=== PATIENT | female | born 1945 | race Caucasian/White ===

== ENCOUNTER 2018-05-19 11:13 | Inpatient (IN) | payer MEDICARE, OTHER ==
[~2018-05-19] VITALS: Ht 162.6 cm; Wt 63.0 kg
[2018-05-19] MEDS ORDERED: LEVO75TA5 PO (11:57)
[2018-05-19] MEDS ORDERED: SODIUM CHLORIDE 0.9% 1,000ML IVBOLUS ONE (12:00)
[2018-05-19] MEDS ORDERED: ONDANSETRON 2MG/ML, 2ML IVPush ONE (12:00)
[2018-05-19] MEDS ORDERED: SODIUM CHLORIDE FLUSH 10ML SYR IVF ONE (12:00)
[2018-05-19] MEDS ORDERED: FAMOTIDINE 20 MG/2 ML IVP ONE (12:00)
[2018-05-19] MEDS ORDERED: FAMOTIDINE 20 MG/2 ML ONE (12:09)
[2018-05-19] MEDS ORDERED: ONDANSETRON 2MG/ML, 2ML ONE (12:09)
[2018-05-19 12:17] LABS: BASOPHILS # (AUTO) 0.03 x10^3/uL (0-0.1); BASOPHILS % (AUTO) 0 % (0-1); EOSINOPHILS % (AUTO) 1 % (1-7); LYMPHOCYTES # (AUTO) 1.76 x10^3/uL (1-3.4); LYMPHOCYTES % (AUTO) 24 % (22-44); MD NO; MEAN CORPUSCULAR HEMOGLOBIN 30.8 pg (27.0-34.8); MEAN CORPUSCULAR HGB CONC 34.1 g/dL (32.4-35.8); MEAN CORPUSCULAR VOLUME 90.5 fL (80-100); MEAN PLATELET VOLUME 9.4 fL (7.4-10.4); MONOCYTES # (AUTO) 0.71 x10^3/uL (0.2-0.8); MONOCYTES % (AUTO) 9 % (2-9); NEUTROPHILS # (AUTO) 4.88 x10^3/uL (1.8-6.8); NEUTROPHILS % (AUTO) 65 % (42-75); PLATELET COUNT 208 x10^3/uL (130-400); RED BLOOD COUNT 5.56 x10^6/uL (3.82-5.3)
[2018-05-19 12:23] LABS: ALBUMIN 3.6 g/dL (3.4-5.0); ANION GAP 20 mmol/L (5-15); CALCIUM 9.8 mg/dL (8.5-10.1); CHLORIDE 79 mmol/L (98-107)
[2018-05-19 12:26] LABS: ALANINE AMINOTRANSFERASE 34 U/L (12-78); ALKALINE PHOSPHATASE 104 U/L (45-117); BILIRUBIN,TOTAL 1.2 mg/dL (0.2-1.0); TOTAL PROTEIN 7.3 g/dL (6.4-8.2)
[2018-05-19] MEDS ORDERED: PLEASE ENTER HEIGHT AND WEIGHT MC SCH (12:30)
[2018-05-19] MEDS ORDERED: DEXTROSE 50%, 50ML SYRINGE ONE (12:36)
[2018-05-19] MEDS ORDERED: DEXTROSE 50%, 50ML SYRINGE IVPush ONE (13:00)
[2018-05-19] MEDS ORDERED: OMNIPAQUE 350 MG/ML, 100ML BOTTLE ONE (13:14)
[2018-05-19] MEDS ORDERED: DOCUSATE 100 MG CAPSULE PO PRN (14:00)
[2018-05-19] MEDS ORDERED: ACETAMINOPHEN 325 MG TABLET PO PRN (14:00)
[2018-05-19] MEDS ORDERED: ONDANSETRON 2MG/ML, 2ML IVPush PRN (14:00)
[2018-05-19] MEDS ORDERED: HYDROcodone/APAP 5/325 TABLET PO PRN (14:00)
[2018-05-19] MEDS ORDERED: MORPHINE SULFATE 4 MG/ML, 1ML IVPush PRN (14:00)
[2018-05-19] MEDS ORDERED: ENOXAPARIN 40 MG/0.4 ML SQ SCH (14:00)
[2018-05-19] MEDS ORDERED: POLYETHYLENE GLYCOL 17 GM PACKET PO PRN (14:00)
[2018-05-19] MEDS: NICOTINE 7 MG/24 HR PATCH.TD24 TD SCH (14:00)
[2018-05-19] MEDS ORDERED: ACETAMINOPHEN 325 MG TABLET ONE (14:44)
[2018-05-19 14:58] LABS: MICROSCOPIC NOT IND
[2018-05-19] MEDS ORDERED: D5%-0.9% NACL+KCL 20MEQ 1,000 ML IV SCH (15:00)
[2018-05-19 15:02] LABS: CULTURE INDICATED? NO
[2018-05-19] MEDS ORDERED: DEXAMETHASONE 4 MG/ML, 5ML ONE (15:09)
[2018-05-19] MEDS ORDERED: CEFTRIAXONE PMX 1GM/50ML 50 ML ONE (15:09)
[2018-05-19] MEDS ORDERED: DEXAMETHASONE 4 MG/ML, 1ML IV ONE (15:30)
[2018-05-19] MEDS ORDERED: CEFTRIAXONE 1,000 MG in SODIUM CHLORIDE 0.9% 50 ML IVPB ONE (15:30)
[2018-05-19] MEDS ORDERED: ICN DEXAMETHASONE 1 MG/ML IV IV ONE (15:30)
[2018-05-19 15:43] LABS: ANION GAP 12 mmol/L (5-15); CALCIUM 8.2 mg/dL (8.5-10.1); CHLORIDE 88 mmol/L (98-107)
[2018-05-19] MEDS ORDERED: NOREPINEPHRINE 4 MG in SODIUM CHLORIDE 0.9% 246 ML IV PRN ×2 (16:00→16:57)
[2018-05-19] MEDS: METRONIDAZOLE PMX 500MG/100ML 100 ML IVPB SCH (18:16)
[2018-05-19] MEDS: PANTOPRAZOLE 40 MG IV IVPush SCH (18:17)
[2018-05-19] MEDS: SODIUM CHLORIDE 0.9% 1,000 ML IV SCH (18:17)
[2018-05-19] MEDS ORDERED: FAMOTIDINE 20 MG TABLET PO SCH (21:00)
[2018-05-19 23:40] LABS: ANION GAP 12 mmol/L (5-15); CHLORIDE 97 mmol/L (98-107); CREATININE 0.95 mg/dL (0.55-1.02)
[2018-05-20] MEDS: METRONIDAZOLE PMX 500MG/100ML 100 ML IVPB SCH ×3 (02:44→17:30)
[2018-05-20 04:00] VITALS: BP 106/54
[2018-05-20] MEDS ORDERED: ZIPRASIDONE 20 MG INJ IM ONE ×2 (04:00→04:01)
[2018-05-20 04:45] LABS: BASOPHILS # (AUTO) 0.02 x10^3/uL (0-0.1); BASOPHILS % (AUTO) 0 % (0-1); EOSINOPHILS % (AUTO) 0 % (1-7); LYMPHOCYTES # (AUTO) 0.44 x10^3/uL (1-3.4); LYMPHOCYTES % (AUTO) 6 % (22-44); MD NO; MEAN CORPUSCULAR HEMOGLOBIN 30.9 pg (27.0-34.8); MEAN CORPUSCULAR HGB CONC 34.2 g/dL (32.4-35.8); MEAN CORPUSCULAR VOLUME 90.5 fL (80-100); MEAN PLATELET VOLUME 8.9 fL (7.4-10.4); MONOCYTES # (AUTO) 0.03 x10^3/uL (0.2-0.8); MONOCYTES % (AUTO) 0 % (2-9); NEUTROPHILS # (AUTO) 7.24 x10^3/uL (1.8-6.8); NEUTROPHILS % (AUTO) 94 % (42-75); PLATELET COUNT 191 x10^3/uL (130-400); RED CELL DISTRIBUTION WIDTH 12.1 % (9.6-15.2)
[2018-05-20 04:50] LABS: CHLORIDE 99 mmol/L (98-107)
[2018-05-20 04:56] LABS: ANION GAP 8 mmol/L (5-15); CALCIUM 8.2 mg/dL (8.5-10.1)
[2018-05-20] MEDS: PANTOPRAZOLE 40 MG IV IVPush SCH ×2 (05:35→17:30)
[2018-05-20] MEDS ORDERED: MAGNESIUM SULFATE 4 GM in SODIUM CHLORIDE 0.9% 100 ML IV ONE (09:00)
[2018-05-20] MEDS: SODIUM CHLORIDE 0.9% 1,000 ML IV SCH (09:15)
[2018-05-20] MEDS: NICOTINE 7 MG/24 HR PATCH.TD24 TD SCH (09:15)
[2018-05-20] MEDS: LEVOTHYROXINE 75 MCG TABLET PO SCH ×2 (09:16→09:22)
[2018-05-20 11:44] LABS: ALBUMIN 3.2 g/dL (3.4-5.0); CHLORIDE 102 mmol/L (98-107)
[2018-05-20 11:47] LABS: ALANINE AMINOTRANSFERASE 31 U/L (12-78); ALKALINE PHOSPHATASE 79 U/L (45-117); ANION GAP 9 mmol/L (5-15); BILIRUBIN,TOTAL 0.5 mg/dL (0.2-1.0); CALCIUM 8.5 mg/dL (8.5-10.1); CREATININE 0.79 mg/dL (0.55-1.02); TOTAL PROTEIN 6.5 g/dL (6.4-8.2)
[2018-05-20 11:59] LABS: FREE T4 (FREE THYROXINE) 1.93 ng/dL (0.76-1.46); THYROID STIMULATING HORMONE 0.23 mIU/L (0.358-3.740)
[2018-05-20] MEDS: CEFTRIAXONE 2 GM in SODIUM CHLORIDE 0.9% 50 ML IVPB SCH (15:12)
[2018-05-20] MEDS: FOLIC ACID 1 MG, THIAMINE 200 MG, MVI ADULT 10 ML in D5%-0.9% NACL 1,000 ML IV SCH (16:18)
[2018-05-21] MEDS: METRONIDAZOLE PMX 500MG/100ML 100 ML IVPB SCH ×3 (01:46→22:55)
[2018-05-21 04:27] VITALS: BP 137/74
[2018-05-21] MEDS: LEVOTHYROXINE 25 MCG TABLET PO SCH (04:27)
[2018-05-21] MEDS: PANTOPRAZOLE 40 MG IV IVPush SCH ×2 (04:27→18:47)
[2018-05-21 05:04] LABS: ALANINE AMINOTRANSFERASE 36 U/L (12-78); ALBUMIN 3.1 g/dL (3.4-5.0); ANION GAP 9 mmol/L (5-15); CALCIUM 8.1 mg/dL (8.5-10.1); CHLORIDE 103 mmol/L (98-107); CREATININE 0.75 mg/dL (0.55-1.02)
[2018-05-21 05:07] LABS: ALKALINE PHOSPHATASE 75 U/L (45-117); BILIRUBIN,TOTAL 0.4 mg/dL (0.2-1.0); TOTAL PROTEIN 6.4 g/dL (6.4-8.2)
[2018-05-21 05:12] LABS: BASOPHILS % (AUTO) 0 % (0-1); EOSINOPHILS % (AUTO) 0 % (1-7); LYMPHOCYTES # (AUTO) 0.73 x10^3/uL (1-3.4); LYMPHOCYTES % (AUTO) 5 % (22-44); MD NO; MEAN CORPUSCULAR HEMOGLOBIN 31.3 pg (27.0-34.8); MEAN CORPUSCULAR HGB CONC 33.8 g/dL (32.4-35.8); MEAN CORPUSCULAR VOLUME 92.6 fL (80-100); MEAN PLATELET VOLUME 9.1 fL (7.4-10.4); MONOCYTES # (AUTO) 0.82 x10^3/uL (0.2-0.8); MONOCYTES % (AUTO) 5 % (2-9); NEUTROPHILS # (AUTO) 14.62 x10^3/uL (1.8-6.8); NEUTROPHILS % (AUTO) 90 % (42-75); PLATELET COUNT 208 x10^3/uL (130-400); RED BLOOD COUNT 4.25 x10^6/uL (3.82-5.3); RED CELL DISTRIBUTION WIDTH 12.4 % (9.6-15.2)
[2018-05-21] MEDS ORDERED: SODIUM CHLORIDE 0.9% 1,000ML IVBOLUS ONE (13:30)
[2018-05-21] MEDS: FOLIC ACID 1 MG, THIAMINE 200 MG, MVI ADULT 10 ML in D5%-0.9% NACL 1,000 ML IV SCH (16:35)
[2018-05-21] MEDS: CEFTRIAXONE 2 GM in SODIUM CHLORIDE 0.9% 50 ML IVPB SCH (16:35)
[2018-05-21] MEDS: NICOTINE 7 MG/24 HR PATCH.TD24 TD SCH (16:36)
[2018-05-21 17:58] VITALS: BP 117/71
[2018-05-21 20:00] VITALS: BP 104/62
[2018-05-22 01:06] VITALS: BP 100/58
[2018-05-22] MEDS: LEVOTHYROXINE 25 MCG TABLET PO SCH (05:37)
[2018-05-22] MEDS: PANTOPRAZOLE 40 MG IV IVPush SCH ×2 (05:37→18:02)
[2018-05-22] MEDS: METRONIDAZOLE PMX 500MG/100ML 100 ML IVPB SCH ×3 (07:53→23:56)
[2018-05-22 07:57] VITALS: BP 118/74
[2018-05-22 08:23] LABS: BASOPHILS # (AUTO) 0.02 x10^3/uL (0-0.1); BASOPHILS % (AUTO) 0 % (0-1); EOSINOPHILS # (AUTO) 0.01 x10^3/uL (0-0.4); EOSINOPHILS % (AUTO) 0 % (1-7); LYMPHOCYTES # (AUTO) 1.56 x10^3/uL (1-3.4); LYMPHOCYTES % (AUTO) 15 % (22-44); MD NO; MEAN CORPUSCULAR HEMOGLOBIN 29.9 pg (27.0-34.8); MEAN CORPUSCULAR HGB CONC 33.3 g/dL (32.4-35.8); MEAN CORPUSCULAR VOLUME 89.8 fL (80-100); MEAN PLATELET VOLUME 8.6 fL (7.4-10.4); MONOCYTES # (AUTO) 0.72 x10^3/uL (0.2-0.8); MONOCYTES % (AUTO) 7 % (2-9); NEUTROPHILS # (AUTO) 8.21 x10^3/uL (1.8-6.8); NEUTROPHILS % (AUTO) 78 % (42-75); PLATELET COUNT 209 x10^3/uL (130-400); RED BLOOD COUNT 4.35 x10^6/uL (3.82-5.3); RED CELL DISTRIBUTION WIDTH 12.6 % (9.6-15.2)
[2018-05-22 08:32] LABS: ALANINE AMINOTRANSFERASE 44 U/L (12-78); ALBUMIN 3.1 g/dL (3.4-5.0); ANION GAP 8 mmol/L (5-15); CHLORIDE 103 mmol/L (98-107); CREATININE 0.84 mg/dL (0.55-1.02)
[2018-05-22 08:35] LABS: ALKALINE PHOSPHATASE 73 U/L (45-117); BILIRUBIN,TOTAL 0.7 mg/dL (0.2-1.0); TOTAL PROTEIN 6.1 g/dL (6.4-8.2)
[2018-05-22] MEDS: FOLIC ACID 1 MG, THIAMINE 200 MG, MVI ADULT 10 ML in D5%-0.9% NACL 1,000 ML IV SCH (12:58)
[2018-05-22 13:02] VITALS: BP 124/66
[2018-05-22] MEDS: NICOTINE 7 MG/24 HR PATCH.TD24 TD SCH (15:00)
[2018-05-22] MEDS: CEFTRIAXONE 2 GM in SODIUM CHLORIDE 0.9% 50 ML IVPB SCH (15:08)
[2018-05-22 19:35] VITALS: BP 122/69
[2018-05-23 01:19] VITALS: BP 109/70
[2018-05-23 07:25] VITALS: BP 94/56
[2018-05-23] MEDS: METRONIDAZOLE PMX 500MG/100ML 100 ML IVPB SCH ×2 (08:33→21:18)
[2018-05-23] MEDS: PANTOPRAZOLE 40 MG IV IVPush SCH (08:33)
[2018-05-23 10:35] LABS: ALANINE AMINOTRANSFERASE 34 U/L (12-78); ALBUMIN 2.5 g/dL (3.4-5.0); ANION GAP 8 mmol/L (5-15); CALCIUM 7.2 mg/dL (8.5-10.1); CHLORIDE 105 mmol/L (98-107); CREATININE 0.71 mg/dL (0.55-1.02)
[2018-05-23 10:37] LABS: ALKALINE PHOSPHATASE 57 U/L (45-117); BILIRUBIN,TOTAL 0.7 mg/dL (0.2-1.0); TOTAL PROTEIN 5.2 g/dL (6.4-8.2)
[2018-05-23 10:40] LABS: BASOPHILS # (AUTO) 0.05 x10^3/uL (0-0.1); BASOPHILS % (AUTO) 1 % (0-1); EOSINOPHILS # (AUTO) 0.09 x10^3/uL (0-0.4); EOSINOPHILS % (AUTO) 1 % (1-7); LYMPHOCYTES # (AUTO) 1.83 x10^3/uL (1-3.4); LYMPHOCYTES % (AUTO) 26 % (22-44); MD NO; MEAN CORPUSCULAR HEMOGLOBIN 31.2 pg (27.0-34.8); MEAN CORPUSCULAR HGB CONC 33.9 g/dL (32.4-35.8); MEAN CORPUSCULAR VOLUME 92.2 fL (80-100); MEAN PLATELET VOLUME 8.3 fL (7.4-10.4); MONOCYTES # (AUTO) 0.61 x10^3/uL (0.2-0.8); MONOCYTES % (AUTO) 9 % (2-9); NEUTROPHILS # (AUTO) 4.43 x10^3/uL (1.8-6.8); NEUTROPHILS % (AUTO) 63 % (42-75); PLATELET COUNT 209 x10^3/uL (130-400); RED BLOOD COUNT 3.99 x10^6/uL (3.82-5.3); RED CELL DISTRIBUTION WIDTH 12.8 % (9.6-15.2)
[2018-05-23] MEDS ORDERED: MAGNESIUM SULFATE 4 GM in SODIUM CHLORIDE 0.9% 100 ML IV ONE (12:00)
[2018-05-23] MEDS ORDERED: MAGNESIUM SULFATE PMX 4GM/100M 100 ML IVPB ONE (12:00)
[2018-05-23 12:55] VITALS: BP 124/66
[2018-05-23] MEDS: NICOTINE 7 MG/24 HR PATCH.TD24 TD SCH (15:00)
[2018-05-23] MEDS ORDERED: PROPOFOL 10 MG/ML, 20ML ONE (15:13)
[2018-05-23] MEDS ORDERED: PROMETHAZINE 12.5 MG SUPP PR PRN (15:30)
[2018-05-23] MEDS ORDERED: PROMETHAZINE 25 MG/ML, 1ML IV PRN (15:30)
[2018-05-23] MEDS ORDERED: ONDANSETRON 2MG/ML, 2ML IV PRN (15:30)
[2018-05-23] MEDS ORDERED: ONDANSETRON ODT 8 MG PO PRN (15:30)
[2018-05-23] MEDS ORDERED: MIDAZOLAM 1 MG/ML, 2ML IV PRN (15:30)
[2018-05-23] MEDS ORDERED: HYDROmorphone 1 MG/ML, 1ML IV PRN (15:30)
[2018-05-23] MEDS ORDERED: OXYcodone 5 MG/5 ML ORAL.SOL UDC PO PRN (15:30)
[2018-05-23] MEDS ORDERED: LABETALOL 5MG/ML, 20ML IV PRN (15:30)
[2018-05-23] MEDS ORDERED: MEPERIDINE/PF 25MG/0.5ML IVPush PRN (15:30)
[2018-05-23] MEDS ORDERED: ALBUTEROL SULFATE 2.5 MG/3 ML NPPB PRN (15:30)
[2018-05-23] MEDS ORDERED: FENTANYL PF 100 MCG/2ML IV PRN (15:30)
[2018-05-23] MEDS ORDERED: hydrALAzine 20 MG/ML, 1ML IV PRN (15:30)
[2018-05-23] MEDS ORDERED: POTASSIUM CHLORIDE 20 MEQ TAB.ER.PRT PO ONE (16:00)
[2018-05-23 19:51] VITALS: BP 100/52
[2018-05-23] MEDS: PANTOPROZOLE 40MG TABLET PO SCH (21:18)
[2018-05-23] MEDS: CETIRIZINE 10 MG TABLET PO SCH (21:18)
[2018-05-23 22:05] VITALS: BP 121/66
[2018-05-23] MEDS: CEFTRIAXONE 2 GM in SODIUM CHLORIDE 0.9% 50 ML IVPB SCH (22:42)
[2018-05-24] MEDS: METRONIDAZOLE PMX 500MG/100ML 100 ML IVPB SCH (05:09)
[2018-05-24 05:37] LABS: ANION GAP 7 mmol/L (5-15); CALCIUM 7.4 mg/dL (8.5-10.1); CHLORIDE 102 mmol/L (98-107)
[2018-05-24 05:38] LABS: CREATININE 0.68 mg/dL (0.55-1.02)
[2018-05-24] MEDS ORDERED: LEVOTHYROXINE 50 MCG TABLET PO SCH (06:00)
[2018-05-24] MEDS ORDERED: POTASSIUM CHLORIDE 20 MEQ TAB.ER.PRT PO ONE (07:30)
[2018-05-24 07:34] VITALS: BP 101/59
[2018-05-24] MEDS: CETIRIZINE 10 MG TABLET PO SCH (09:22)
[2018-05-24] MEDS: PANTOPROZOLE 40MG TABLET PO SCH (09:22)
[2018-05-24] MEDS ORDERED: LEVO50TA PO (10:56)
[2018-05-24] MEDS ORDERED: PANT40TA5 PO (10:56)
== END 2018-05-24 12:35 | disposition home or self-care (01) | DRG 871 ==
LOC: SUATTDRO 13:11 → ED 13:35 → EDIP 13:36 → CCU 17:11 → 3NE 05-21 16:49
PROVIDERS: ADMIT Family Medicine; ATTEND Family Medicine
PROC: 05HM33Z Insertion of Infusion Device into Right Internal Jugular Vein, Percutaneous Approach (ICD-10-PCS; principal; 2018-05-19)
PROC: B543ZZA Ultrasonography of Right Jugular Veins, Guidance (ICD-10-PCS; 2018-05-19)
PROC: 0DB38ZX Excision of Lower Esophagus, Via Natural or Artificial Opening Endoscopic, Diagnostic (ICD-10-PCS; 2018-05-23)
DX: A41.9 Sepsis, unspecified organism (principal); G93.41 Metabolic encephalopathy; R65.21 Severe sepsis with septic shock; E87.1 Hypo-osmolality and hyponatremia; K22.10 Ulcer of esophagus without bleeding; D75.1 Secondary polycythemia; E86.0 Dehydration; E78.5 Hyperlipidemia, unspecified; K22.8 Other specified diseases of esophagus; F17.200 Nicotine dependence, unspecified, uncomplicated; E16.2 Hypoglycemia, unspecified; E89.0 Postprocedural hypothyroidism; I95.1 Orthostatic hypotension; Z82.3 Family history of stroke; J30.2 Other seasonal allergic rhinitis; K52.9 Noninfective gastroenteritis and colitis, unspecified; Z81.8 Family history of other mental and behavioral disorders; Z88.0 Allergy status to penicillin; Z79.899 Other long term (current) drug therapy
CPT/HCPCS: 36415; 36556; 70450; 71045; 74177; 80048; 80053; 81003; 82140; 82306; 82607; 83605; 83690; 83735; 84100; 84145; 84439; 84443; 85014; 85018; 85025; 87040; 87081; 88305; 89055; 96374; 96375; 99292; J0696; J2405; J2704; J3411; J3475; J3486; J7042; Q9967; C9113; J3480; J7030; J7050; S0028

== ENCOUNTER 2018-06-09 17:12 | Inpatient (IN) | payer MEDICARE, OTHER ==
[~2018-06-09] VITALS: Ht 157.5 cm; Wt 58.8 kg
[~2018-06-09 17:12] MED LIST: LEVO50TA PO; LEVO75TA5 PO; PANT40TA5 PO
[2018-06-09] MEDS ORDERED: DEXTROSE 50%, 50ML SYRINGE ONE (17:42)
[2018-06-09] MEDS ORDERED: SODIUM CHLORIDE FLUSH 10ML SYR IVF ONE (18:00)
[2018-06-09] MEDS ORDERED: SODIUM CHLORIDE 0.9% 1,000ML IVBOLUS ONE ×2 (18:00→21:00)
[2018-06-09 18:23] LABS: BASOPHILS # (AUTO) 0.05 x10^3/uL (0-0.1); BASOPHILS % (AUTO) 1 % (0-1); EOSINOPHILS # (AUTO) 0.16 x10^3/uL (0-0.4); EOSINOPHILS % (AUTO) 4 % (1-7); LYMPHOCYTES # (AUTO) 1.23 x10^3/uL (1-3.4); LYMPHOCYTES % (AUTO) 28 % (22-44); MD NO; MEAN CORPUSCULAR HEMOGLOBIN 30.9 pg (27.0-34.8); MEAN CORPUSCULAR HGB CONC 33.9 g/dL (32.4-35.8); MEAN PLATELET VOLUME 8.6 fL (7.4-10.4); MONOCYTES # (AUTO) 0.41 x10^3/uL (0.2-0.8); MONOCYTES % (AUTO) 9 % (2-9); NEUTROPHILS # (AUTO) 2.51 x10^3/uL (1.8-6.8); NEUTROPHILS % (AUTO) 58 % (42-75); PLATELET COUNT 241 x10^3/uL (130-400); RED BLOOD COUNT 4.41 x10^6/uL (3.82-5.3); RED CELL DISTRIBUTION WIDTH 13.3 % (9.6-15.2)
[2018-06-09 18:31] LABS: INTERNATIONAL NORMALIZED RATIO 1.16 (0.93-1.1)
[2018-06-09 18:34] LABS: ANION GAP 16 mmol/L (5-15); CALCIUM 9.2 mg/dL (8.5-10.1); CHLORIDE 89 mmol/L (98-107)
[2018-06-09 18:38] LABS: ALANINE AMINOTRANSFERASE 21 U/L (12-78); ALKALINE PHOSPHATASE 66 U/L (45-117); BILIRUBIN,TOTAL 0.9 mg/dL (0.2-1.0); CREATININE 1.08 mg/dL (0.55-1.02); TOTAL PROTEIN 6.2 g/dL (6.4-8.2)
[2018-06-09 19:20] LABS: ACETONE, SERUM Moderate(40mg/dL) mg/dL (Negative)
[2018-06-09 19:47] LABS: FREE T4 (FREE THYROXINE) 1.21 ng/dL (0.76-1.46); THYROID STIMULATING HORMONE 5.8 mIU/L (0.358-3.740)
[2018-06-09 20:32] LABS: CULTURE INDICATED? YES; MICROSCOPIC AUTO
[2018-06-09] MEDS ORDERED: POLYETHYLENE GLYCOL 17 GM PACKET PO PRN (21:00)
[2018-06-09] MEDS: HEPARIN 5,000 UNITS/ML, 1ML SQ SCH ×2 (21:00→22:07)
[2018-06-09] MEDS: PANTOPROZOLE 40MG TABLET PO SCH ×2 (21:00→22:08)
[2018-06-09] MEDS ORDERED: ACETAMINOPHEN 325 MG TABLET PO PRN (21:00)
[2018-06-09 21:25] VITALS: BP 88/43
[2018-06-09 22:38] VITALS: BP 76/43
[2018-06-09 23:00] VITALS: BP 78/54
[2018-06-09 23:41] VITALS: BP 85/41
[2018-06-10] VITALS (7 sets, daily range): BP systolic 82–133; BP diastolic 42–75
[2018-06-10] MEDS: SODIUM CHLORIDE 0.9% 1,000 ML IV SCH ×2 (01:29→10:13)
[2018-06-10] MEDS: HEPARIN 5,000 UNITS/ML, 1ML SQ SCH ×3 (05:16→21:23)
[2018-06-10] MEDS: LEVOTHYROXINE 50 MCG TABLET PO SCH (05:16)
[2018-06-10] MEDS ORDERED: SODIUM CHLORIDE 0.9%, 500ML IVBOLUS ONE (05:30)
[2018-06-10 05:33] LABS: BASOPHILS # (AUTO) 0.05 x10^3/uL (0-0.1); BASOPHILS % (AUTO) 2 % (0-1); EOSINOPHILS # (AUTO) 0.07 x10^3/uL (0-0.4); EOSINOPHILS % (AUTO) 2 % (1-7); LYMPHOCYTES # (AUTO) 1.11 x10^3/uL (1-3.4); LYMPHOCYTES % (AUTO) 33 % (22-44); MD NO; MEAN CORPUSCULAR HEMOGLOBIN 30.9 pg (27.0-34.8); MEAN CORPUSCULAR VOLUME 90.8 fL (80-100); MEAN PLATELET VOLUME 8.9 fL (7.4-10.4); MONOCYTES # (AUTO) 0.44 x10^3/uL (0.2-0.8); MONOCYTES % (AUTO) 13 % (2-9); NEUTROPHILS # (AUTO) 1.71 x10^3/uL (1.8-6.8); NEUTROPHILS % (AUTO) 51 % (42-75); PLATELET COUNT 218 x10^3/uL (130-400); RED BLOOD COUNT 4.01 x10^6/uL (3.82-5.3); RED CELL DISTRIBUTION WIDTH 13.5 % (9.6-15.2)
[2018-06-10 05:53] LABS: ANION GAP 7 mmol/L (5-15); CALCIUM 8.5 mg/dL (8.5-10.1); CHLORIDE 99 mmol/L (98-107)
[2018-06-10 05:54] LABS: CREATININE 0.77 mg/dL (0.55-1.02)
[2018-06-10 08:08] LABS: CLOSTRIDIUM DIFFICILE ANTIGEN NEGATIVE; CLOSTRIDIUM DIFFICILE TOXIN NEGATIVE (Negative)
[2018-06-10] MEDS: PANTOPROZOLE 40MG TABLET PO SCH ×2 (09:00→21:23)
[2018-06-10] MEDS ORDERED: COSYNTROPIN 0.25 MG IM ONE (11:00)
[2018-06-10] MEDS ORDERED: D5%-0.9% NACL 1,000 ML IV SCH (11:00)
[2018-06-10] MEDS ORDERED: DEXAMETHASONE 4 MG/ML, 1ML IVPush SCH (11:30)
[2018-06-10] MEDS ORDERED: MAGNESIUM SULFATE 4 GM in SODIUM CHLORIDE 0.9% 100 ML IV ONE (12:30)
[2018-06-10 15:28] LABS: ANION GAP 10 mmol/L (5-15); CALCIUM 8.8 mg/dL (8.5-10.1); CHLORIDE 99 mmol/L (98-107)
[2018-06-10 15:31] LABS: CREATININE 0.74 mg/dL (0.55-1.02)
[2018-06-10] MEDS: DEXAMETHASONE 4 MG/ML, 1ML IVPush SCH (23:26)
[2018-06-11 02:00] VITALS: BP 120/77
[2018-06-11] MEDS: HEPARIN 5,000 UNITS/ML, 1ML SQ SCH ×5 (05:00→23:23)
[2018-06-11] MEDS: LEVOTHYROXINE 50 MCG TABLET PO SCH ×2 (05:59→06:00)
[2018-06-11 06:17] LABS: BASOPHILS # (AUTO) 0.01 x10^3/uL (0-0.1); BASOPHILS % (AUTO) 0 % (0-1); EOSINOPHILS % (AUTO) 0 % (1-7); LYMPHOCYTES # (AUTO) 0.55 x10^3/uL (1-3.4); LYMPHOCYTES % (AUTO) 14 % (22-44); MD NO; MEAN CORPUSCULAR HEMOGLOBIN 30.1 pg (27.0-34.8); MEAN CORPUSCULAR HGB CONC 33.7 g/dL (32.4-35.8); MEAN CORPUSCULAR VOLUME 89.5 fL (80-100); MEAN PLATELET VOLUME 9.3 fL (7.4-10.4); MONOCYTES # (AUTO) 0.11 x10^3/uL (0.2-0.8); MONOCYTES % (AUTO) 3 % (2-9); NEUTROPHILS # (AUTO) 3.23 x10^3/uL (1.8-6.8); NEUTROPHILS % (AUTO) 83 % (42-75); PLATELET COUNT 241 x10^3/uL (130-400); RED BLOOD COUNT 4.72 x10^6/uL (3.82-5.3); RED CELL DISTRIBUTION WIDTH 13.6 % (9.6-15.2)
[2018-06-11 06:31] LABS: ANION GAP 11 mmol/L (5-15); CHLORIDE 101 mmol/L (98-107)
[2018-06-11 06:35] LABS: ALANINE AMINOTRANSFERASE 24 U/L (12-78); ALKALINE PHOSPHATASE 76 U/L (45-117); BILIRUBIN,TOTAL 0.8 mg/dL (0.2-1.0); CREATININE 0.69 mg/dL (0.55-1.02); TOTAL PROTEIN 6.4 g/dL (6.4-8.2)
[2018-06-11 07:04] VITALS: BP 112/70
[2018-06-11] MEDS ORDERED: LEVOTHYROXINE 100 MCG INJ IVPush SCH (09:00)
[2018-06-11] MEDS: PANTOPRAZOLE 40 MG IV IVPush SCH ×2 (10:24→21:00)
[2018-06-11] MEDS ORDERED: D5%-0.9% NACL 1,000 ML IV SCH (11:00)
[2018-06-11] MEDS: DEXAMETHASONE 4 MG/ML, 1ML IVPush SCH (11:50)
[2018-06-11 12:32] VITALS: BP 112/64
[2018-06-11 13:17] LABS: HCT (SEDRATE) 42.2 % (34.6-47.8)
[2018-06-11] MEDS: HYDROCORTISONE 100 MG INJ. IVPush SCH ×2 (16:05→23:23)
[2018-06-11] MEDS: SODIUM CHLORIDE 0.9% 1,000 ML IV SCH (16:05)
[2018-06-11 19:16] VITALS: BP 92/58
[2018-06-12 00:50] VITALS: BP 96/64
[2018-06-12] MEDS: HYDROCORTISONE 100 MG INJ. IVPush SCH (06:14)
[2018-06-12] MEDS: HEPARIN 5,000 UNITS/ML, 1ML SQ SCH ×2 (06:14→17:34)
[2018-06-12] MEDS: SODIUM CHLORIDE 0.9% 1,000 ML IV SCH (06:15)
[2018-06-12 06:16] LABS: BASOPHILS # (AUTO) 0.02 x10^3/uL (0-0.1); BASOPHILS % (AUTO) 0 % (0-1); EOSINOPHILS % (AUTO) 0 % (1-7); LYMPHOCYTES # (AUTO) 0.62 x10^3/uL (1-3.4); LYMPHOCYTES % (AUTO) 8 % (22-44); MD NO; MEAN CORPUSCULAR HEMOGLOBIN 30.5 pg (27.0-34.8); MEAN CORPUSCULAR HGB CONC 33.7 g/dL (32.4-35.8); MEAN CORPUSCULAR VOLUME 90.5 fL (80-100); MEAN PLATELET VOLUME 8.8 fL (7.4-10.4); MONOCYTES # (AUTO) 0.33 x10^3/uL (0.2-0.8); MONOCYTES % (AUTO) 4 % (2-9); NEUTROPHILS # (AUTO) 6.88 x10^3/uL (1.8-6.8); NEUTROPHILS % (AUTO) 88 % (42-75); PLATELET COUNT 242 x10^3/uL (130-400); RED CELL DISTRIBUTION WIDTH 13.6 % (9.6-15.2)
[2018-06-12 06:26] LABS: ALBUMIN 2.9 g/dL (3.4-5.0); ANION GAP 10 mmol/L (5-15); CALCIUM 8.4 mg/dL (8.5-10.1); CHLORIDE 105 mmol/L (98-107)
[2018-06-12 06:30] LABS: ALANINE AMINOTRANSFERASE 22 U/L (12-78); ALKALINE PHOSPHATASE 58 U/L (45-117); BILIRUBIN,TOTAL 0.8 mg/dL (0.2-1.0); CREATININE 0.89 mg/dL (0.55-1.02); TOTAL PROTEIN 5.9 g/dL (6.4-8.2)
[2018-06-12 07:48] VITALS: BP 99/63
[2018-06-12] MEDS ORDERED: HYDROCORTISONE 20 MG TABLET PO SCH (10:30)
[2018-06-12] MEDS: FLUDROCORTISONE 0.1 MG TABLET PO SCH (11:01)
[2018-06-12] MEDS: LEVOTHYROXINE 50 MCG TABLET PO SCH (11:01)
[2018-06-12] MEDS: PANTOPROZOLE 40MG TABLET PO SCH ×2 (11:01→20:41)
[2018-06-12] MEDS: HYDROCORTISONE 20 MG TABLET PO SCH (11:02)
[2018-06-12] MEDS ORDERED: SODIUM CHLORIDE 0.9% 1,000 ML IV SCH (14:30)
[2018-06-12 15:39] VITALS: BP 96/62
[2018-06-12] MEDS: HYDROCORTISONE 10 MG TABLET PO SCH (17:34)
[2018-06-12 19:29] VITALS: BP 92/56
[2018-06-13] MEDS: HEPARIN 5,000 UNITS/ML, 1ML SQ SCH ×3 (01:35→17:22)
[2018-06-13 02:36] VITALS: BP 95/58
[2018-06-13 05:48] LABS: ANION GAP 8 mmol/L (5-15); CALCIUM 8.1 mg/dL (8.5-10.1); CHLORIDE 108 mmol/L (98-107)
[2018-06-13 05:50] LABS: CREATININE 0.87 mg/dL (0.55-1.02)
[2018-06-13] MEDS: LEVOTHYROXINE 50 MCG TABLET PO SCH (05:57)
[2018-06-13 06:45] VITALS: BP 100/62
[2018-06-13 07:13] VITALS: BP 104/66
[2018-06-13] MEDS: FLUDROCORTISONE 0.1 MG TABLET PO SCH (09:20)
[2018-06-13] MEDS: HYDROCORTISONE 20 MG TABLET PO SCH (09:20)
[2018-06-13] MEDS: PANTOPROZOLE 40MG TABLET PO SCH ×2 (09:20→20:40)
[2018-06-13 12:49] VITALS: BP 118/72
[2018-06-13 15:08] LABS: CULTURE INDICATED? YES; MICROSCOPIC INDICATED
[2018-06-13] MEDS: HYDROCORTISONE 10 MG TABLET PO SCH (17:21)
[2018-06-13 18:49] VITALS: BP 97/58
[2018-06-14 00:48] VITALS: BP 100/43
[2018-06-14] MEDS: HEPARIN 5,000 UNITS/ML, 1ML SQ SCH ×3 (01:36→17:50)
[2018-06-14 06:07] LABS: ANION GAP 10 mmol/L (5-15); CHLORIDE 107 mmol/L (98-107)
[2018-06-14 06:10] LABS: CALCIUM 7.5 mg/dL (8.5-10.1); CREATININE 0.97 mg/dL (0.55-1.02)
[2018-06-14] MEDS: LEVOTHYROXINE 50 MCG TABLET PO SCH (06:12)
[2018-06-14 07:22] VITALS: BP_SYST 102; BP_SYST 91; BP_DIAS 52; BP_DIAS 60
[2018-06-14] MEDS: PANTOPROZOLE 40MG TABLET PO SCH ×2 (08:44→20:05)
[2018-06-14] MEDS: FLUDROCORTISONE 0.1 MG TABLET PO SCH (08:44)
[2018-06-14] MEDS: HYDROCORTISONE 20 MG TABLET PO SCH (08:44)
[2018-06-14] MEDS ORDERED: MAGNESIUM SULFATE PMX 2GM/50ML 50 ML IV ONE (10:00)
[2018-06-14] MEDS: POTASSIUM CHLORIDE 20 MEQ TAB.ER.PRT PO SCH ×2 (11:27→14:00)
[2018-06-14 12:07] VITALS: BP 112/66
[2018-06-14] MEDS ORDERED: POTASSIUM CHLORIDE 20 MEQ PACKET ONE (16:02)
[2018-06-14] MEDS: HYDROCORTISONE 10 MG TABLET PO SCH (16:19)
[2018-06-14] MEDS ORDERED: GADOBUTROL 10 MMOL/10 ML VIAL ONE (16:29)
[2018-06-14] MEDS ORDERED: ATOR10TA9 PO (16:50)
[2018-06-14 18:51] VITALS: BP 123/76
[2018-06-15 01:05] VITALS: BP 106/68
[2018-06-15] MEDS: HEPARIN 5,000 UNITS/ML, 1ML SQ SCH ×4 (02:08→16:37)
[2018-06-15 05:48] LABS: ANION GAP 8 mmol/L (5-15); CALCIUM 7.2 mg/dL (8.5-10.1); CHLORIDE 108 mmol/L (98-107)
[2018-06-15 05:53] LABS: CHOLESTEROL, TOTAL 136 mg/dL (140-239); CREATININE 0.81 mg/dL (0.55-1.02); HDL CHOL % 20 % (28-40); HDL CHOLESTEROL (DIRECT) 27 mg/dL (40-60); LDL CHOLESTEROL,CALCULATED 86 mg/dL (54-169); LDL/HDL RATIO 3.2 (0.5-3.0); TRIGLYCERIDES 115 mg/dL (50-200); VLDL CHOLESTEROL 23 mg/dL (0-25)
[2018-06-15] MEDS: LEVOTHYROXINE 50 MCG TABLET PO SCH (06:04)
[2018-06-15 07:00] VITALS: BP 111/74
[2018-06-15] MEDS: FLUDROCORTISONE 0.1 MG TABLET PO SCH (09:31)
[2018-06-15] MEDS: HYDROCORTISONE 20 MG TABLET PO SCH (09:31)
[2018-06-15] MEDS: NEUTRA PHOS K 250 MG TABLET PO SCH ×3 (09:31→21:06)
[2018-06-15] MEDS: PANTOPROZOLE 40MG TABLET PO SCH ×2 (09:31→21:07)
[2018-06-15 12:50] VITALS: BP 106/60
[2018-06-15] MEDS: HYDROCORTISONE 10 MG TABLET PO SCH (16:46)
[2018-06-15 20:04] VITALS: BP 114/64
[2018-06-15] MEDS ORDERED: ATORVASTATIN 10 MG TABLET PO SCH (21:00)
[2018-06-16] MEDS: HEPARIN 5,000 UNITS/ML, 1ML SQ SCH ×3 (01:30→16:41)
[2018-06-16 02:57] VITALS: BP 105/63
[2018-06-16 05:21] LABS: ANION GAP 7 mmol/L (5-15); CHLORIDE 106 mmol/L (98-107)
[2018-06-16 05:22] LABS: CREATININE 0.86 mg/dL (0.55-1.02)
[2018-06-16] MEDS: LEVOTHYROXINE 50 MCG TABLET PO SCH (06:19)
[2018-06-16 07:00] VITALS: BP 124/80
[2018-06-16] MEDS ORDERED: MAGNESIUM SULFATE PMX 2GM/50ML 50 ML IV ONE (08:00)
[2018-06-16] MEDS: PANTOPROZOLE 40MG TABLET PO SCH (08:06)
[2018-06-16] MEDS: FLUDROCORTISONE 0.1 MG TABLET PO SCH (08:06)
[2018-06-16] MEDS: HYDROCORTISONE 20 MG TABLET PO SCH (08:06)
[2018-06-16] MEDS: NEUTRA PHOS K 250 MG TABLET PO SCH ×2 (08:06→16:40)
[2018-06-16 13:05] VITALS: BP 97/57
[2018-06-16] MEDS ORDERED: FLUD0.1T PO (13:20)
[2018-06-16] MEDS ORDERED: HYDR10TA PO (13:20)
[2018-06-16] MEDS ORDERED: HYDR20TA PO (16:31)
[2018-06-16] MEDS: HYDROCORTISONE 10 MG TABLET PO SCH (16:40)
== END 2018-06-16 17:46 | disposition home health service (06) | DRG 643 ==
LOC: SUATTDRO 20:33 → ED 20:53 → EDIP 21:29 → 4WST 21:40
PROVIDERS: ADMIT Hospitalist; ATTEND Hospitalist
DX: E27.2 Addisonian crisis (principal); G93.41 Metabolic encephalopathy; E87.1 Hypo-osmolality and hyponatremia; E87.2 Acidosis; K21.9 Gastro-esophageal reflux disease without esophagitis; E03.9 Hypothyroidism, unspecified; E16.2 Hypoglycemia, unspecified; E05.90 Thyrotoxicosis, unspecified without thyrotoxic crisis or storm; E83.42 Hypomagnesemia; E87.5 Hyperkalemia; E27.1 Primary adrenocortical insufficiency; E87.6 Hypokalemia; E83.39 Other disorders of phosphorus metabolism; F17.200 Nicotine dependence, unspecified, uncomplicated; Z88.0 Allergy status to penicillin
CPT/HCPCS: 36415; 70450; 70553; 71045; 80048; 80053; 80061; 81001; 82010; 82024; 82088; 82140; 82533; 82962; 83605; 83690; 83735; 84100; 84244; 84439; 84443; 85025; 85610; 85651; 86140; 87040; 87086; 87324; 93005; 99285; A9585; J1100; J1644; J3475; J7042; 92523-GN; C9113; J0834; J1720; J7030; J7040